=== PATIENT | male | born 1955 | race Two or more races ===

== ENCOUNTER 2017-05-06 14:12 | Emergency (ER) | payer OTHER ==
[~2017-05-06] VITALS: Ht 177.8 cm; Wt 86.4 kg
[2017-05-06] MEDS ORDERED: CETI10TA (14:24)
[2017-05-06] MEDS ORDERED: FLOM5CAP (14:24)
[2017-05-06] MEDS ORDERED: ATOR80TA59 (14:24)
[2017-05-06] MEDS ORDERED: METO1TAB7 (14:24)
[2017-05-06] MEDS ORDERED: CLOP75TA2 (14:24)
[2017-05-06] MEDS ORDERED: ALLO15TA (14:24)
[2017-05-06] MEDS ORDERED: FLUO40CA (14:24)
[2017-05-06 15:05] LABS: BASO % 0.4 % (0.0-1.0); EOS # 0.2 K/mm3 (0.0-0.50); EOS % 1.8 % (0.0-3.0); LARGE UNSTAINED CELL # 0.1 K/mm3 (0.0-0.4); LARGE UNSTAINED CELL % 1.4 % (0.0-4.0); LYMPH # 1.4 K/mm3 (1.5-4.5); LYMPH % 15.6 % (24.0-44.0); MEAN CORPUSCULAR HEMOGLOBIN 29.3 pg (27.0-33.0); MEAN CORPUSCULAR HGB CONC 34.5 g/dl (32.0-36.5); MEAN CORPUSCULAR VOLUME 84.8 fl (80.0-96.0); MONO # 0.9 K/mm3 (0.0-0.8); MONO % 10.1 % (0.0-5.0); NEUTROPHILS # 6.4 K/mm3 (1.8-7.7); NEUTROPHILS % 70.7 % (36.0-66.0); PLATELET COUNT, AUTOMATED 275 k/mm3 (150-450); RED CELL DISTRIBUTION WIDTH 13.6 % (11.5-14.5)
[2017-05-06 15:31] LABS: ANION GAP 6 MEQ/L (8-16); BLOOD UREA NITROGEN 24 MG/DL (7-18); CARBON DIOXIDE LEVEL 30 MEQ/L (21-32); CHLORIDE LEVEL 103 MEQ/L (98-107); CREATININE FOR GFR 1.28 MG/DL (0.70-1.30); GLOMERULAR FILTRATION RATE > 60.0 (>49); GLUCOSE, FASTING 97 MG/DL (80-110); POTASSIUM SERUM 4.3 MEQ/L (3.5-5.1); SODIUM LEVEL 139 MEQ/L (136-145)
[2017-05-06 16:57] LABS: ALBUMIN 3.6 GM/DL (3.2-5.2); AST/SGOT 15 U/L (15-37); TOTAL PROTEIN 7.6 GM/DL (6.4-8.2)
[2017-05-06 17:15] LABS: ALKALINE PHOSPHATASE 100 U/L (45-117); ALT/SGPT 26 U/L (12-78); BILIRUBIN,DIRECT 0.2 MG/DL (0.0-0.2)
--- NOTE | 2017-05-06 17:52 | REP ---
Clinical: Shortness of breath . Comparison: None . Findings: The mediastinum and cardiac silhouette are stable and within normal limits for portable technique. The lung guzman are clear without acute consolidation, effusion, or pneumothorax. Skeletal structures are intact. Impression: No acute cardiopulmonary process appreciated. Signed by Jeramy Keller MD 05/06/2017 05:44 P
--- NOTE | 2017-05-06 19:42 | REP ---
Clinical: Altered mental status and fatigue. Comparison: None . Findings: The ventricles, sulci, and cisterns are normal in position and appearance. Dumont-white differentiation is maintained. No acute intracranial hemorrhage, mass/mass effect, pathology or trauma/injury. No evidence for acute infarction. No extra-axial fluid collection. Calvarium is intact. Paranasal sinuses and mastoid air cells are clear. Impression: Normal noncontrast head CT. No evidence for acute intracranial pathology or trauma/injury. Signed by Jeramy Keller MD 05/06/2017 07:34 P
[2017-05-06 20:24] LABS: ABG HCO3 26.5 MEQ/L (22.0-26.0); ABG PARTIAL PRESSURE CO2 41.1 mmHg (35.0-45.0); ABG PARTIAL PRESSURE O2 84.6 mmHg (75.0-100.0); ABG STANDARD HCO3 26.2 MEQ/L (22.0-26.0); ABG TOTAL CO2 27.7 MEQ/L (23.0-31.0); ABG pH (ARTERIAL) 7.427 UNITS (7.350-7.450)
[2017-05-06 21:46] VITALS: BP 122/75
--- NOTE | 2017-05-07 07:30 | ECGEPIP ---
Stationary ECG Study [facility] - ED Test Date: 2017-05-06 Pat Name: ERNIE PUGH Department: Room: - Gender: M Detail Manager: sandra : 1955 Requested By: ABNER Koch Order Number: [id number] Reading MD: Jackie Mcallister Measurements Intervals [place] Rate: 62 P: 51 MN: 177 QRS: 19 QRSD: 95 T: 15 QT: 393 QTc: 400 Interpretive Statements SINUS RHYTHM INFERIOR MYOCARDIAL INFARCTION, PROBABLY OLD NO PRIOR FOR COMPARISON Electronically Signed On 05-07-2017 7:30:02 EDT by Jackie Mcallister
[2017-05-11 00:07] LABS: Lyme Disease IgG Ab 18 kDa Ban Present (.); Lyme Disease IgG Ab 23 kDa Ban Present (.); Lyme Disease IgG Ab 28 kDa Ban Present (.); Lyme Disease IgG Ab 30 kDa Ban Present (.); Lyme Disease IgG Ab 39 kDa Ban Present (.); Lyme Disease IgG Ab 41 kDa Ban Present (.); Lyme Disease IgG Ab 45 kDa Ban Present (.); Lyme Disease IgG Ab 58 kDa Ban Present (.); Lyme Disease IgG Ab 66 kDa Ban Present (.); Lyme Disease IgG Ab 93 kDa Ban Present (.); Lyme Disease IgG West Blot Int Positive (.); Lyme Disease IgG/IgM Antibodie 5.88 ISR (0.00-0.90); Lyme Disease IgM Ab 23 kDa Ban Present (.); Lyme Disease IgM Ab 39 kDa Ban Absent (.); Lyme Disease IgM Ab 41 kDa Ban Present (.); Lyme Disease IgM Ab Quantitati 7.44 index (0.00-0.79); Lyme Disease IgM West Blot Int Positive (.)
== END 2017-05-06 22:19 | disposition home or self-care (01) ==
LOC: M ED 14:12
DX: R53.83 Other fatigue (principal); R42 Dizziness and giddiness; I10 Essential (primary) hypertension; I25.2 Old myocardial infarction; N40.0 Benign prostatic hyperplasia without lower urinary tract symptoms; Z79.899 Other long term (current) drug therapy

== ENCOUNTER → 2017-06-11 | Outpatient (CLI) | payer MEDICAID, OTHER ==
[~2017-06-11] MED LIST: ALLO15TA; ATOR80TA59; CETI10TA; CLOP75TA2; FLOM5CAP; FLUO40CA; METO1TAB7
--- NOTE | 2017-06-11 10:33 | REP ---
TRANSRECTAL PROSTATE ULTRASOUND WITH ULTRASOUND GUIDANCE FOR PROSTATE BIOPSY: Real-time sonographic evaluation of the prostate performed utilizing transrectal probe. The size of the gland is 5.1 x 4.5 x 5.2 cm for a total volume of 62.4 mL. There appear to be two somewhat hypoechoic nodular areas in the right side of the gland measuring 7 x 7 mm and 11 x 7 mm. Another nodular area on the left measures 10 x 7 mm. Seminal vesicles appear symmetrical. Ultrasound guidance was provided for Dr. Stone who performed ultrasound guided biopsy of the prostate. Signed by Les Dumont MD 06/11/2017 11:58 A
== END ==
LOC: M SMT PRO 08:08
PROVIDERS: ATTEND Urology
DX: R97.20 Elevated prostate specific antigen [PSA] (principal)
CPT/HCPCS: 76872; 76942; G0416

== ENCOUNTER → 2023-05-09 | Outpatient (CLI) | payer OTHER, MEDICAID, MEDICARE ==
[~2023-05-09] MED LIST changes: -ALLO15TA; +ALLO300T2; +FLOM0.4C39; -FLOM5CAP
== END ==
LOC: M SOG 11:23
PROVIDERS: ATTEND Physician Assistant
DX: S42.111A Displaced fracture of body of scapula, right shoulder, initial encounter for closed fracture (principal)

== ENCOUNTER → 2023-05-21 | Outpatient (CLI) | payer MEDICAID, MEDICARE, OTHER | LOC: M SOG 08:39 | PROVIDERS: ATTEND Physician Assistant | DX: S42.111A Displaced fracture of body of scapula, right shoulder, initial encounter for closed fracture (principal); W18.30XA Fall on same level, unspecified, initial encounter; Y92.009 Unspecified place in unspecified non-institutional (private) residence as the place of occurrence of the external cause ==

== ENCOUNTER 2024-07-20 17:06 | Emergency (ER) | payer MEDICARE ==
[~2024-07-20] VITALS: Ht 177.8 cm; Wt 81.8 kg
[~2024-07-20 17:06] MED LIST changes: -ATOR80TA59; +ATOR80TA59 PO; -CETI10TA; +CETI10TA PO; -CLOP75TA2; +CLOP75TA2 PO; -FLUO40CA; +FLUO40CA PO; -METO1TAB7; +METO1TAB7 PO
[2024-07-20 17:37] LABS: BASO % 0.2 % (0.0-1.0); HEMATOCRIT 37.8 % (42.0-52.0); HEMOGLOBIN 13.3 g/dl (13.5-17.5); LYMPH # 1.1 10^3/uL (1.5-5.0); LYMPH % 12.7 % (24.0-44.0); MEAN CORPUSCULAR HEMOGLOBIN 29.6 pg (27.0-33.0); MEAN CORPUSCULAR HGB CONC 35.2 g/dl (32.0-36.5); MONO # 0.8 10^3/uL (0.0-0.8); MONO % 9.4 % (2.0-8.0); NEUTROPHILS # 6.8 10^3/uL (1.5-8.5); NEUTROPHILS % 77.4 % (36.0-66.0); PLATELET COUNT, AUTOMATED 243 10^3/uL (150-450); WHITE BLOOD COUNT 8.7 10^3/uL (4.0-10.0)
[2024-07-20 18:04] LABS: CK-MB VALUE MASS 2.9 NG/ML (<3.6)
[2024-07-20 18:06] LABS: MB/CK RELATIVE INDEX 0.92 (< OR =4)
[2024-07-20] MEDS ORDERED: MORPHINE 2 MG/ML 1ML VIAL IV PRN (18:50)
[2024-07-20 19:07] LABS: BILIRUBIN,DIRECT 0.7 MG/DL (<0.4); BILIRUBIN,TOTAL 2.1 MG/DL (0.3-1.2); CALCIUM LEVEL 9.3 MG/DL (8.3-10.6); CREATININE FOR GFR 1.54 MG/DL (0.70-1.30); GLOMERULAR FILTRATION RATE 47.6 (>42); POTASSIUM SERUM 4.2 MMOL/L (3.5-5.1); TOTAL PROTEIN 7.2 G/DL (5.7-8.2)
[2024-07-20 19:30] LABS: CK-MB VALUE MASS 2.6 NG/ML (<3.6)
[2024-07-20 19:31] LABS: MB/CK RELATIVE INDEX 0.92 (< OR =4)
[2024-07-20] MEDS ORDERED: ISOVUE-370 76% 100ML VIAL As Ordered ONE (19:40)
[2024-07-20] MEDS ORDERED: ALLO300T2 PO (20:07)
[2024-07-20] MEDS ORDERED: FINA5TAB2 PO (20:07)
[2024-07-20] MEDS ORDERED: TAMS1CAP17 PO (20:07)
[2024-07-20] MEDS ORDERED: ASPI81TA26 PO (20:08)
[2024-07-20] MEDS ORDERED: HOME MED LIST COMPLETE! XX SCH (20:10)
[2024-07-20] MEDS ORDERED: OMEP40CA4 PO (20:49)
[2024-07-20 21:00] VITALS: O2SAT 95
[2024-07-20 21:09] VITALS: BP 109/53; TEMP 97
== END 2024-07-20 21:16 | disposition home or self-care (01) ==
LOC: M ED 17:06
DX: R07.9 Chest pain, unspecified (principal); I25.2 Old myocardial infarction; I25.119 Atherosclerotic heart disease of native coronary artery with unspecified angina pectoris; K21.9 Gastro-esophageal reflux disease without esophagitis; I10 Essential (primary) hypertension; E78.5 Hyperlipidemia, unspecified; Z87.891 Personal history of nicotine dependence; Z79.1 Long term (current) use of non-steroidal anti-inflammatories (NSAID); Z79.899 Other long term (current) drug therapy
CPT/HCPCS: 36415; 71045; 71275; 80048; 80076; 82550; 82553; 84484; 85025; 93005; 93041; 94760; 96374; 99285; Q9967

== ENCOUNTER 2025-05-08 00:56 | Emergency (ER) | payer MEDICARE ==
[~2025-05-08] VITALS: Ht 177.8 cm; Wt 81.8 kg
[~2025-05-08 00:56] MED LIST changes: +ALLO300T2 PO; +ASPI81TA26 PO; +FINA5TAB2 PO; -FLOM0.4C39; +OMEP40CA4 PO; +TAMS-18; +TAMS1CAP17 PO
[2025-05-08] MEDS ORDERED: NITR0.4S14 PO (01:23)
[2025-05-08 01:50] LABS: BASO # 0.0 10^3/uL (0.0-0.2); BASO % 0.5 % (0.0-1.0); EOS # 0.3 10^3/uL (0.0-0.5); EOS % 4.4 % (0.0-3.0); LYMPH # 1.0 10^3/uL (1.5-5.0); LYMPH % 15.7 % (24.0-44.0); MONO # 0.8 10^3/uL (0.0-0.8); MONO % 12.4 % (2.0-8.0); NEUTROPHILS # 4.3 10^3/uL (1.5-8.5); NEUTROPHILS % 66.7 % (36.0-66.0); PLATELET COUNT, AUTOMATED 217 10^3/uL (150-450)
[2025-05-08] MEDS: ASPIRIN 81 MG CHEWABLE TABLET PO ONE (02:10)
[2025-05-08 02:14] LABS: CALCIUM LEVEL 8.7 MG/DL (8.3-10.6); CARBON DIOXIDE LEVEL 28.0 MMOL/L (20-31); CHLORIDE LEVEL 107.0 MMOL/L (98-107); CK-MB VALUE MASS 3.5 NG/ML (<3.6); CPK CREATINE PHOSPHOKINASE 109.0 U/L (46-171); CREATININE FOR GFR 1.15 MG/DL (0.70-1.30); GLOMERULAR FILTRATION RATE 68.0 (>42); MB/CK RELATIVE INDEX 3.21 (< OR =4); POTASSIUM SERUM 4.0 MMOL/L (3.5-5.1); SODIUM LEVEL 143.0 MMOL/L (136-145)
[2025-05-08] MEDS ORDERED: ISOVUE-370 76% 100 ML VIAL As Ordered ONE (02:16)
[2025-05-08 03:16] LABS: CK-MB VALUE MASS 3.5 NG/ML (<3.6)
[2025-05-08 03:18] LABS: CPK CREATINE PHOSPHOKINASE 104.0 U/L (46-171); MB/CK RELATIVE INDEX 3.36 (< OR =4)
[2025-05-08 04:15] LABS: CK-MB VALUE MASS 4.2 NG/ML (<3.6)
[2025-05-08 04:18] LABS: CPK CREATINE PHOSPHOKINASE 103.0 U/L (46-171); MB/CK RELATIVE INDEX 4.07 (< OR =4)
[2025-05-08 05:07] VITALS: BP 125/64; TEMP 98; O2SAT 96
== END 2025-05-08 05:13 | disposition home or self-care (01) ==
LOC: M ED 00:56
DX: R07.9 Chest pain, unspecified (principal); R00.1 Bradycardia, unspecified; I44.0 Atrioventricular block, first degree; I25.2 Old myocardial infarction; Z79.1 Long term (current) use of non-steroidal anti-inflammatories (NSAID); Z79.899 Other long term (current) drug therapy
CPT/HCPCS: 36415; 71045; 71275; 80048; 82550; 82553; 84484; 85025; 93005; 93041; 94760; 99285; Q9967

== ENCOUNTER → 2025-06-09 | Outpatient (REF) | payer MEDICARE ==
[~2025-06-09] MED LIST changes: +NITR0.4S14 PO
== END ==
LOC: M LAB REF 17:36
PROVIDERS: ATTEND Otolaryngology
DX: J35.8 Other chronic diseases of tonsils and adenoids (principal); C09.9 Malignant neoplasm of tonsil, unspecified

== ENCOUNTER → 2025-06-25 | Outpatient (CLI) | payer MEDICARE | LOC: M ONCR 13:13 | PROVIDERS: ATTEND General Practice | DX: C09.0 Malignant neoplasm of tonsillar fossa (principal); Z80.43 Family history of malignant neoplasm of testis; Z79.82 Long term (current) use of aspirin; Z79.899 Other long term (current) drug therapy | CPT/HCPCS: 31575; G0463 ==

== ENCOUNTER → 2025-08-02 | Outpatient (CLI) | payer MEDICARE | LOC: M PLARAD 07:59 | PROVIDERS: ATTEND General Practice | DX: C09.0 Malignant neoplasm of tonsillar fossa (principal) | CPT/HCPCS: 78815; A9552 ==

== ENCOUNTER 2025-08-09 07:54 | Outpatient (RCR) | payer MEDICARE | END 2025-09-03 | LOC: M ONCR 07:54 | PROVIDERS: ATTEND General Practice | DX: Z51.0 Encounter for antineoplastic radiation therapy (principal); C09.0 Malignant neoplasm of tonsillar fossa ==